=== PATIENT | female | born 1995 | race Caucasian/White ===

== ENCOUNTER 2024-05-03 11:43 | Emergency (ER) | payer OTHER, SELFPAY ==
[2024-05-03 11:49] VITALS: BP 121/78; PULSE 99; TEMP 36.9; O2SAT 99; BMI 19.3
[2024-05-03 12:49] LABS: Influenza Virus A Antigen Negative; Influenza Virus B Antigen Negative; Internal Control Within Normal Limits; SARS-CoV-2 Ag POSITIVE (NEGATIVE)
--- NOTE | 2024-05-03 13:00 | ED.URI1 ---
HPI - URI/Sore Throat General Chief Complaint: Upper Respiratory Infection Stated Complaint: POSSIBLE PNEMONIA Time Seen by Provider: 05/03/24 11:45 Source: patient Limitations: no limitations History of Present Illness HPI Narrative: Patient presents to ED complaining of upper respiratory infection symptoms. She has had a cough and chest congestion for about a week week and a half. Patient states it started off not too bad but then since this past she has had some pain and tightness in her lungs and she gets short of breath with walking. She was concerned she might have pneumonia so she came in for evaluation. She does not have a fever here and she is 99% on room air in no acute respiratory distress. She said she was coughing up mucus. No other complaints at this time. Related Data Previous Rx's ?Medication ?Instructions ?Recorded albuterol sulfate 90 mcg/actuation 1 inh inhalation Q6H PRN shortness 05/03/24 aerosol inhaler of breath or wheezing #8.5 grams benzonatate 100 mg capsule 100 mg PO BID PRN cough #14 caps 05/03/24 methylprednisolone 4 mg tablets in 4 mg PO DAILY #21 ea 05/03/24 a dose pack (Medrol (Jj)) Allergies Allergy/AdvReac Type Severity Reaction Status Date / Time No Known Drug Allergies Allergy Verified 05/03/24 11:52 Review of Systems ROS Status of ROS 10 or more systems reviewed and unremarkable except as noted in history and below PFSH PFSH Social History Little interest or pleasure in doing things: not at all Feeling down, depressed, or hopeless: not at all Exam Narrative Exam Narrative: General: alert, no acute distress Cardiovascular: regular rate and rhythm, normal peripheral perfusion. Respiratory: Lungs CTA, respirations non labored. Extremities: no deformity, no trauma. Neurological: oriented x 4, LOC appropriate for age. Constitutional Vital Signs, click to edit/add: Last Vital Signs Temp 98.4 F 05/03/24 11:49 Pulse 99 H 05/03/24 11:49 Resp 18 05/03/24 11:49 BP 121/78 05/03/24 11:49 Pulse Ox 99 05/03/24 11:49 O2 Del Method Room Air 05/03/24 11:49 Course Vital Signs Vital signs: Vital Signs Temperature 98.4 F 05/03/24 11:49 Pulse Rate 99 H 05/03/24 11:49 Respiratory Rate 18 05/03/24 11:49 Blood Pressure 121/78 05/03/24 11:49 Pulse Oximetry 99 05/03/24 11:49 Oxygen Delivery Method Room Air 05/03/24 11:49 Temperature 98.4 F 05/03/24 11:49 Pulse Rate 99 H 05/03/24 11:49 Respiratory Rate 18 05/03/24 11:49 Blood Pressure 121/78 05/03/24 11:49 Pulse Oximetry 99 05/03/24 11:49 Oxygen Delivery Method Room Air 05/03/24 11:49 MDM - URI/Sore Throat MDM Narrative Medical decision making narrative: Patient was found to be COVID-positive. Patient will be sent home with albuterol steroids and cough medication to help her symptoms. Follow-up with family doctor or return to ED if worsening symptoms. Chest x-ray clear showing no pneumonia. Differential Diagnosis Differential diagnosis: Likely upper respiratory infection, viral infection, bronchitis, influenza and other (COVID) Lab Data Attestation: I reviewed the patient's lab results. Labs: Lab Results 05/03/24 Range/Units 12:27 Influenza Type A Ag Negative Influenza Type B Ag Negative SARS-CoV-2 Ag (CV2AG) Positive A (NEGATIVE) Imaging Data Chest x-ray: Attestation: I have reviewed the pertinent imaging results. Discharge Plan Discharge Chief Complaint: Upper Respiratory Infection Clinical Impression: Upper respiratory infection, COVID Patient Disposition: Home, Self-Care Time of Disposition Decision: 12:46 Condition: Good Mode of Transportation: Private Vehicle Prescriptions / Home Meds: New benzonatate 100 mg capsule 100 mg PO BID PRN (Reason: cough) Qty: 14 0RF albuterol sulfate 90 mcg/actuation HFA aerosol inhaler 1 inh inhalation Q6H PRN (Reason: shortness of breath or wheezing) Qty: 8.5 0RF methylprednisolone [Medrol (Jj)] 4 mg tablets,dose pack 4 mg PO DAILY Qty: 21 0RF Rx Instructions: medrol dosepak disp one use as directed Print Language: Icelandic Instructions: COVID-19 (Coronavirus Disease 2019) (ED) Referrals: Physician,Non-Staff, MD [Primary Care Provider] - 1 week
== END 2024-05-03 13:19 | disposition home or self-care (01) ==
PROVIDERS: Emergency Provider Emergency Medicine
DX: U07.1 COVID-19 (principal); J06.9 Acute upper respiratory infection, unspecified
CPT/HCPCS: 71046; 87804; 87811; 99284